=== PATIENT | female | born 1945 | race Caucasian/White ===

== ENCOUNTER → 2017-09-23 | Outpatient (CLI) | payer MEDICARE, MEDICAID ==
[2017-09-23 17:35] LABS: BASOPHILS % (AUTO) 0 % (0-10); EOSINOPHILS # (AUTO) 0.2 10^3/uL (0.0-0.3); EOSINOPHILS % (AUTO) 3 % (0-10); HEMATOCRIT 40 % (35-52); HEMOGLOBIN 13.7 G/DL (11.5-16.0); LYMPHOCYTES # (AUTO) 2.1 X 10^3 (1.0-4.0); LYMPHOCYTES % (AUTO) 29 % (12-44); MEAN CORPUSCULAR HEMOGLOBIN 32 PG (25-34); MEAN CORPUSCULAR HGB CONC 34 G/DL (32-36); MEAN CORPUSCULAR VOLUME 93 FL (80-99); MEAN PLATELET VOLUME 9.3 FL (7.4-10.4); MONOCYTES # (AUTO) 0.6 X 10^3 (0.0-1.0); MONOCYTES % (AUTO) 8 % (0-12); NEUTROPHILS # (AUTO) 4.4 X 10^3 (1.8-7.8); NEUTROPHILS % (AUTO) 60 % (42-75); PLATELET COUNT 267 10^3/uL (130-400); RED BLOOD COUNT 4.29 10^6/uL (4.35-5.85); RED CELL DISTRIBUTION WIDTH 14.1 % (10.0-14.5); WHITE BLOOD COUNT 7.2 10^3/uL (4.3-11.0)
[2017-09-23 17:52] LABS: ALANINE AMINOTRANSFERASE 14 U/L (0-55); ALKALINE PHOSPHATASE 86 U/L (40-136); BILIRUBIN,TOTAL 0.4 MG/DL (0.1-1.0); BUN/CREATININE RATIO 14; CALCIUM 9.6 MG/DL (8.5-10.1); CARBON DIOXIDE 24 MMOL/L (21-32); CHLORIDE 108 MMOL/L (98-107); CREATININE SERUM 0.86 MG/DL (0.60-1.30); GFR ESTIMATED > 60; GLUCOSE 104 MG/DL (70-105); POTASSIUM 3.6 MMOL/L (3.6-5.0); SODIUM 142 MMOL/L (135-145); TOTAL PROTEIN 6.6 GM/DL (6.4-8.2)
== END ==
LOC: LAB 17:11
PROVIDERS: ATTEND Nurse Practitioner Family
DX: R10.30 Lower abdominal pain, unspecified (principal)
CPT/HCPCS: 36415; 80053; 85025

== ENCOUNTER 2018-08-06 14:26 | Emergency (ER) | payer MEDICARE, MEDICAID ==
[~2018-08-06] VITALS: Ht 160 cm; Wt 67.1 kg
--- OUTSIDE RECORDS SUMMARY | 2018-08-06 14:32 | XMS REPORT ---
Author Author GERSON DUARTE [employer] Address Unknown Phone Unavailable Care Team Providers Care Coupler Name Role Phone GERSON DUARTE CP Unavailable Allergies, Adverse Reactions, Alerts Substance Reaction Event Type Iodine Info Not Available Drug Allergy Problems Problem Type Condition Code Onset Dates Condition Status Assessment Encounter for dental examination Z01.20 Active Problem Encounter for dental examination Z01.20 Active Medications Medication Code System Code Instructions Start Date End Date Status Dosage Niacin [facility] [address]-65 100 MG Orally Once a day 1 tablet Magnesium [facility] [address]-15 250 MG Orally Once a day 1 tablet with a meal Alprazolam [facility] [address]-76 0.5 MG Orally Three times a day 1 tablet Carvedilol [facility] [address]-51 6.25 MG Orally not defined Procedures Procedure Coding System Code Date PROPHYLAXIS - ADULT CPT-4 D1110 Feb 12, 2015 TOPICAL FLUORIDE VARNISH CPT-4 D1206 Feb 12, 2015 INTRAORL-PERIAPICAL 1 FILM 08511 CPT-4 D0220 Feb 12, 2015 INTRAORL-PERIAPICAL EA ADD FILM CPT-4 D0230 Feb 12, 2015 COMP ORAL EVALUATION - NEW/EST PT CPT-4 D0150 Feb 12, 2015 INTRAORL-PERIAPICAL EA ADD FILM CPT-4 D0230 Feb 12, 2015 INTRAORL-PERIAPICAL EA ADD FILM CPT-4 D0230 Feb 12, 2015 PANORAMIC FILM SEE ALSO CODE 54710 CPT-4 D0330 Feb 12, 2015 INTRAORL-PERIAPICAL EA ADD FILM CPT-4 D0230 Feb 12, 2015 INTRAORL-PERIAPICAL EA ADD FILM CPT-4 D0230 Feb 12, 2015 INTRAORL-PERIAPICAL EA ADD FILM CPT-4 D0230 Feb 12, 2015 INTRAORL-PERIAPICAL EA ADD FILM CPT-4 D0230 Feb 12, 2015 Vital Signs Date/Time: Feb 12, 2015 Blood Pressure Diastolic 87 mmHg Blood Pressure Systolic 141 mmHg Cardiac Monitoring Heart Rate 79 bpm Results No Known Results Summary Purpose eClinicalWorks Submission
[2018-08-06 14:53] LABS: BILIRUBIN,URINE NEGATIVE (NEGATIVE); CLARITY,URINE CLEAR; COLOR,URINE YELLOW; GLUCOSE, URINE (UA) NEGATIVE (NEGATIVE); KETONES,URINE NEGATIVE (NEGATIVE); LEUKOCYTE ESTERASE ,URINE 3+ (NEGATIVE); NITRITE,URINE NEGATIVE (NEGATIVE); PH,URINE 5 (5-9); PROTEIN,URINE 1+ (NEGATIVE); UROBILINOGEN,URINE NORMAL (NORMAL)
[2018-08-06 15:05] LABS: BACTERIA,URINE NEGATIVE /HPF; RBC,URINE 0-2 /HPF
--- NOTE | 2018-08-06 15:16 | ED General ---
General Chief Complaint: Dizziness/Syncope Stated Complaint: DIZZINESS;VOMITING Source of Information: Patient Exam Limitations: No Limitations History of Present Illness Date Seen by Provider: August 06, 2018 Time Seen by Provider: 14:32 Initial Comments This 73-year-old woman presents to the emergency room with complaints of intermittent dizziness followed by vomiting over the past several months. Symptoms seem to have been worsening over the past few months. She was recently taken off of amlodipine by Dr. Araujo, and she thought that resolved the problem. However, dizziness and vomiting resumed 4 days ago. She then had 2 days of feeling extremely weak and having aching muscles in her calves and thighs. Last night she started vomiting again. Today she again feels very weak. She denies any chest pain or palpitations. She is not short of breath. She does have history of breast ache aortic aneurysm status post graft repair. In April she had sudden onset of pain in symptoms. She was flown from the ER in [place] to [facility] where she was found to have a tear in her aorta. She was watched for several days and has had serial scans to monitor the aneurysmal repair since then. She is scheduled to have another scan early next week. The original graft repair was performed in 2014. Patient was placed on Bactrim last week for treatment of a labial abscess that was incised and drained. Allergies and Home Medications Allergies Coded Allergies: carvedilol (Verified Allergy, Severe, Rash, 08/06/18) diazoxide (Verified Allergy, Severe, Rash, 08/06/18) iodine (Verified Allergy, Severe, Rash, 08/06/18) lisinopril (Verified Allergy, Severe, Cough, Hives, 08/06/18) losartan (Verified Allergy, Severe, Rash, 08/06/18) metoprolol (Verified Allergy, Severe, Rash, 08/06/18) alprazolam (Verified Adverse Reaction, Unknown, Hallucinations, 08/06/18) atorvastatin (Verified Adverse Reaction, Unknown, Muscle pain, 08/06/18) rosuvastatin (Verified Adverse Reaction, Unknown, Muscle pain, 08/06/18) Home Medications Cephalexin 500 Mg Capsule, 500 MG PO TID Prescribed by: JOSE BECKFORD on 08/06/18 8172 Ondansetron 4 Mg Tab.rapdis, 4 MG PO Q4H PRN for NAUSEA/VOMITING-1ST LINE Prescribed by: JOSE BECKFORD on 08/06/18 5512 Patient Home Medication List Home Medication List Reviewed: Yes Review of Systems Review of Systems Constitutional: see HPI EENTM: no symptoms reported Respiratory: no symptoms reported Cardiovascular: see HPI Gastrointestinal: see HPI Genitourinary: see HPI : No Musculoskeletal: no symptoms reported Skin: no symptoms reported Psychiatric/Neurological: No Symptoms Reported Hematologic/Lymphatic: No Symptoms Reported Past Moubngi-Gkqxtk-Wcwflp Hx Past Med/Social Hx: Reviewed and Corrections made Patient Social History Recent Foreign Travel: No Contact w/Someone Who Travel: No Past Medical History Surgeries: Yes (thoracic aortic aneurysm repair) Respiratory: No Cardiac: Yes (thoracic aortic aneurysm) Aneurysm, Hypertension Neurological: No : No Reproductive Disorders: No Genitourinary: No Gastrointestinal: No Musculoskeletal: No Endocrine: Yes (vitamin D deficiency, hypokalemia) HEENT: No Cancer: No Psychosocial: No Integumentary: No Physical Exam Vital Signs Vital Signs - First Documented 08/06/18 14:35 Temp 98.3 Pulse 74 Resp 16 B/P (MAP) 175/86 (115) Pulse Ox 99 O2 Delivery Room Air Capillary Refill : Height, Weight, BMI Height: '" Weight: lbs. oz. 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 Patient's symptoms have improved. She has follow-up arranged with her team at [facility]. This is an ongoing waxing and waning problem. I advised her to follow-up and discuss these issues with her team at [facility] rather than pursuing further workup here. Patient is agreeable to this plan. There was some suggestion of continuing urinary tract infection on her urinalysis. Keflex was prescribed. Zofran was also prescribed for use during any future episodes of nausea. ECG Initial ECG Impression Date: August 06, 2018 Initial ECG Impression Time: 14:57 Initial ECG Rate: 56 Initial ECG Rhythm: Normal Sinus Comment Normal sinus rhythm with no ST elevation or depression. Nonspecific T wave changes in the lateral leads. Probable LVH and right axis deviation. Departure Impression Primary Impression: Dizziness Additional Impressions: Nausea & vomiting Qualified Codes: R11.2 - Nausea with vomiting, unspecified Thoracic aortic aneurysm Qualified Codes: I71.2 - Thoracic aortic aneurysm, without rupture Urinary tract infection Qualified Codes: N39.0 - Urinary tract infection, site not specified Disposition: 01 HOME, SELF-CARE Condition: Stable Departure-Patient Inst. Decision time for Depature: 16:15 Referrals: VÍCTOR ARAUJO MD (PCP) Primary Care Physician Patient Instructions: Thoracic Aortic Aneurysm, Urinary Tract Infection, Adult (DC) Add. Discharge Instructions: Drink plenty of clear liquids. Take your medications as prescribed. For nausea and vomiting use Zofran (ondansetron) as prescribed. Return to care in the ER if symptoms of dizziness and vomiting return. It would be good to capture your heart rhythms during one of these episodes. Follow-up with Dr. Araujo as soon as possible. Keep your appointment at [facility] next week. Complete your antibiotics as prescribed and review urine culture results with Dr. Araujo. All discharge instructions reviewed with patient and/or family. Voiced understanding. Scripts Ondansetron (Ondansetron Odt) 4 Mg Tab.rapdis 4 MG PO Q4H PRN for NAUSEA/VOMITING-1ST LINE, #10 TAB Prov: JOSE BRONSON MD 08/06/18 Cephalexin (Keflex) 500 Mg Capsule 500 MG PO TID, #15 CAP Prov: JOSE BRONSON MD 08/06/18 Copy Copies To 1: VÍCTOR ARAUJO MD, JOSHUA T MD August 06, 2018 15:16
[2018-08-06] MEDS ORDERED: VALS160T29 (15:27)
[2018-08-06] MEDS ORDERED: AMLO10TA7 (15:27)
[2018-08-06] MEDS ORDERED: MUPI22OI2 (15:27)
[2018-08-06] MEDS ORDERED: CETI10TA17 (15:27)
[2018-08-06 15:42] LABS: ALANINE AMINOTRANSFERASE 14 U/L (0-55); ALBUMIN 4.1 GM/DL (3.2-4.5); ALKALINE PHOSPHATASE 128 U/L (40-136); BILIRUBIN,TOTAL 0.5 MG/DL (0.1-1.0); BUN/CREATININE RATIO 12; CALCIUM 9.6 MG/DL (8.5-10.1); CARBON DIOXIDE 22 MMOL/L (21-32); CHLORIDE 106 MMOL/L (98-107); CREATINE KINASE 65 U/L (29-168); CREATININE SERUM 0.98 MG/DL (0.60-1.30); GFR ESTIMATED 56; GLUCOSE 108 MG/DL (70-105); MAGNESIUM 1.9 MG/DL (1.8-2.4); SODIUM 139 MMOL/L (135-145); TOTAL PROTEIN 7.2 GM/DL (6.4-8.2)
[2018-08-06 15:43] LABS: BASOPHILS % (AUTO) 1 % (0-10); EOSINOPHILS # (AUTO) 0.1 10^3/uL (0.0-0.3); EOSINOPHILS % (AUTO) 1 % (0-10); HEMATOCRIT 40 % (35-52); HEMOGLOBIN 12.9 G/DL (11.5-16.0); LYMPHOCYTES # (AUTO) 2.1 X 10^3 (1.0-4.0); LYMPHOCYTES % (AUTO) 32 % (12-44); MEAN CORPUSCULAR HEMOGLOBIN 30 PG (25-34); MEAN CORPUSCULAR HGB CONC 33 G/DL (32-36); MEAN CORPUSCULAR VOLUME 93 FL (80-99); MEAN PLATELET VOLUME 9.1 FL (7.4-10.4); MONOCYTES # (AUTO) 0.6 X 10^3 (0.0-1.0); MONOCYTES % (AUTO) 9 % (0-12); NEUTROPHILS # (AUTO) 3.9 X 10^3 (1.8-7.8); NEUTROPHILS % (AUTO) 58 % (42-75); PLATELET COUNT 358 10^3/uL (130-400); RED CELL DISTRIBUTION WIDTH 13.2 % (10.0-14.5); WHITE BLOOD COUNT 6.6 10^3/uL (4.3-11.0)
[2018-08-06] MEDS ORDERED: CEPH-507 PO (16:22)
[2018-08-06] MEDS ORDERED: ONDA4TAB11 PO (16:22)
[2018-08-06 16:33] VITALS: BP 158/70
== END 2018-08-06 16:35 | disposition home or self-care (01) ==
LOC: EDUNIT# 14:26 → ER 14:28
DX: R42 Dizziness and giddiness (principal); N39.0 Urinary tract infection, site not specified; I71.2 Thoracic aortic aneurysm, without rupture; I10 Essential (primary) hypertension; Z88.8 Allergy status to other drugs, medicaments and biological substances; Z91.041 Radiographic dye allergy status; Z98.890 Other specified postprocedural states
CPT/HCPCS: 36415; 80053; 81000; 82550; 83735; 83874; 84484; 85025; 87088; 93005; 93041

== ENCOUNTER 2018-08-10 21:16 | Emergency (ER) | payer MEDICARE, MEDICAID ==
[~2018-08-10 21:16] MED LIST: AMLO10TA7; CEPH-507 PO; CETI10TA17; MUPI22OI2; ONDA4TAB11 PO; VALS160T29
== END 2018-08-11 00:46 | disposition left against medical advice (07) ==
LOC: EDUNIT# 21:16 → ER FS 21:19
DX: R11.10 Vomiting, unspecified (principal); R42 Dizziness and giddiness

== ENCOUNTER 2018-08-11 13:47 | Emergency (ER) | payer MEDICARE, MEDICAID ==
[~2018-08-11] VITALS: Ht 160 cm; Wt 67.1 kg
--- NOTE | 2018-08-11 14:11 | ED Neurological Problem ---
General Stated Complaint: DIZZINESS; VOMITING Source: patient, RN notes reviewed, old records Exam Limitations: no limitations History of Present Illness Date Seen by Provider: August 11, 2018 Time Seen by Provider: 14:11 Initial Comments Patient presents c/ c/o worsening episodic vertigo c/ intractable N/V followed by abdominal pain. Patient reports the episodes started p/ her thoracic aorta aneurysm repair but have been increasing in frequency and severity. Recently seen @ [facility] for an episode and presented here last PM she stated p/ a spell of vertigo and throwing up for over 2 hours. She wound up leaving s/ being seen last PM secondary to it being extremely busy (there was a code in the ED last PM). Apparently had another episode today leading to her coming back. Reports being seen @ [facility] yesterday in follow up of her thoracic aneurysm and did mention the episodes to them then and they told her they were going to get her referred to a PCP to arrange further evaluation. States she doesn't think she can wait. Becoming afraid to drive not knowing if she is going to have an episode. Timing/Duration: episodic, other (months) Severity: severe Associated Symptoms: nausea/vomiting Allergies and Home Medications Allergies Coded Allergies: carvedilol (Verified Allergy, Severe, Rash, 08/06/18) diazoxide (Verified Allergy, Severe, Rash, 08/06/18) iodine (Verified Allergy, Severe, Rash, 08/06/18) lisinopril (Verified Allergy, Severe, Cough, Hives, 08/06/18) losartan (Verified Allergy, Severe, Rash, 08/06/18) metoprolol (Verified Allergy, Severe, Rash, 08/06/18) venom-wasp (Verified Allergy, Severe, anaphylaxis, 08/11/18) alprazolam (Verified Adverse Reaction, Unknown, Hallucinations, 08/06/18) atorvastatin (Verified Adverse Reaction, Unknown, Muscle pain, 08/06/18) rosuvastatin (Verified Adverse Reaction, Unknown, Muscle pain, 08/06/18) Home Medications Cephalexin 500 Mg Capsule, 500 MG PO TID Prescribed by: JOSE BECKFORD on 08/06/18 1622 Ondansetron 4 Mg Tab.rapdis, 4 MG PO Q4H PRN for NAUSEA/VOMITING-1ST LINE Prescribed by: JOSE BECKFORD on 08/06/18 1622 Patient Home Medication List Home Medication List Reviewed: Yes Review of Systems Review of Systems Constitutional: see HPI, other (vertigo) Gastrointestinal: see HPI, abdominal pain (from throwing up per patient), nausea, vomiting : No Past Kkdkoob-Afxklc-Nvlrby Hx Patient Social History Type Used: Cigarettes 2nd Hand Smoke Exposure: Yes Recent Hopitalizations: No Immunizations Up To Date Tetanus Booster (TDap): Unknown PED Vaccines UTD: Yes Seasonal Allergies Seasonal Allergies: No Past Medical History Surgeries: Yes (thoracic aortic aneurysm repair) Breast, Hysterectomy Respiratory: No Cardiac: Yes (thoracic aortic aneurysm) Aneurysm, Hypertension Neurological: No Reproductive Disorders: No Genitourinary: No Gastrointestinal: No Liver Disease/Jaundice, Diverticulosis Musculoskeletal: No Endocrine: Yes (vitamin D deficiency, hypokalemia) Diabetes, Non-Insulin dep HEENT: No Cancer: No Psychosocial: No Anxiety Integumentary: No Blood Disorders: No Physical Exam Vital Signs Vital Signs - First Documented 08/11/18 14:00 Temp 97.4 Pulse 81 Resp 25 B/P (MAP) 165/73 (103) Pulse Ox 96 O2 Delivery Room Air Capillary Refill : Height, Weight, BMI Height: 5'3.00" Weight: 148lbs. oz. 67.838051aa; BMI Method:Stated General Appearance: WD/WN, no apparent distress HEENT: PERRL/EOMI, pharynx normal Neck: normal inspection Respiratory: no respiratory distress Cardiovascular: regular rate, rhythm Gastrointestinal: No guarding, No rebound; tenderness (epigastric) Neurologic/Psychiatric: no motor/sensory deficits, alert, normal mood/affect, oriented x 3 Skin: warm/dry Progress/Results/Core Measures Results/Orders Lab Results Laboratory Tests Test 08/11/18 14:45 08/11/18 18:23 Range/Units White Blood Count 8.7 4.3-11.0 10^3/uL Red Blood Count 4.08 L 4.35-5.85 10^6/uL Hemoglobin 12.3 11.5-16.0 G/DL Hematocrit 38 35-52 % Mean Corpuscular Volume 92 80-99 FL Mean Corpuscular Hemoglobin 30 25-34 PG Mean Corpuscular Hemoglobin Concent 33 32-36 G/DL Red Cell Distribution Width 13.0 10.0-14.5 % Platelet Count 327 130-400 10^3/uL Mean Platelet Volume 8.9 7.4-10.4 FL Neutrophils (%) (Auto) 63 42-75 % Lymphocytes (%) (Auto) 29 12-44 % Monocytes (%) (Auto) 8 0-12 % Eosinophils (%) (Auto) 0 0-10 % Basophils (%) (Auto) 0 0-10 % Neutrophils # (Auto) 5.5 1.8-7.8 X 10^3 Lymphocytes # (Auto) 2.5 1.0-4.0 X 10^3 Monocytes # (Auto) 0.7 0.0-1.0 X 10^3 Eosinophils # (Auto) 0.0 0.0-0.3 10^3/uL Basophils # (Auto) 0.0 0.0-0.1 10^3/uL Sodium Level 141 135-145 MMOL/L Potassium Level 3.7 3.6-5.0 MMOL/L Chloride Level 103 98-107 MMOL/L Carbon Dioxide Level 26 21-32 MMOL/L Anion Gap 12 5-14 MMOL/L Blood Urea Nitrogen 15 7-18 MG/DL Creatinine 0.85 0.60-1.30 MG/DL Estimat Glomerular Filtration Rate > 60 BUN/Creatinine Ratio 18 Glucose Level 114 H 70-105 MG/DL Calcium Level 9.1 8.5-10.1 MG/DL Corrected Calcium 9.3 8.5-10.1 MG/DL Magnesium Level 2.1 1.8-2.4 MG/DL Total Bilirubin 0.4 0.1-1.0 MG/DL Aspartate Amino Transf (AST/SGOT) 12 5-34 U/L Alanine Aminotransferase (ALT/SGPT) 9 0-55 U/L Alkaline Phosphatase 110 40-136 U/L Troponin T < 6 <=10 NG/L Total Protein 6.7 6.4-8.2 GM/DL Albumin 3.7 3.2-4.5 GM/DL Urine Color YELLOW Urine Clarity CLEAR Urine pH 6.0 5-9 Urine Specific [place] <=1.005 1.016-1.022 Urine Protein NEGATIVE NEGATIVE Urine Glucose (UA) NEGATIVE NEGATIVE Urine Ketones NEGATIVE NEGATIVE Urine Nitrite NEGATIVE NEGATIVE Urine Bilirubin NEGATIVE NEGATIVE Urine Urobilinogen 0.2 NORMAL MG/DL Urine Leukocyte Esterase 1+ H NEGATIVE Urine RBC (Auto) NEGATIVE NEGATIVE Urine RBC NONE /HPF Urine WBC 5-10 H /HPF Urine Squamous Epithelial Cells 2-5 /HPF Urine Crystals NONE /LPF Urine Bacteria TRACE /HPF Urine Casts NONE /LPF Urine Mucus NONE /LPF Urine Culture Indicated YES My Orders Orders - EDIN WHITE DO Ua Culture If Indicated (08/11/18 14:16) Cbc With Automated Diff (08/11/18 14:31) Comprehensive Metabolic Panel (08/11/18 14:31) Magnesium (08/11/18 14:31) Troponin T (08/11/18 14:31) Ct Head Wo (08/11/18 14:31) Ekg Tracing (08/11/18 14:33) Orthostatic Vital Signs (Adult (08/11/18 14:33) Lactated Ringers (Lr 1000 Ml Iv Solution (08/11/18 16:00) Ondansetron Injection (Zofran Injectio (08/11/18 17:15) Urine Culture (08/11/18 18:23) Medications Given in ED Vital Signs/I&O 08/11/18 08/11/18 08/11/18 08/11/18 14:00 14:23 17:40 18:51 Temp 97.4 98.2 Pulse 81 64 Resp 25 18 B/P (MAP) 165/73 (103) 165/73 (103) 138/68 (91) 193/84 (120) 167/75 (105) 138/58 (84) 115/67 (83) Pulse Ox 96 95 O2 Delivery Room Air Room Air Progress Progress Note : Progress Note Mildly orthostatic. Will gently hydrate. Request transfer to [facility] for further evaluation/work up of her symptoms. Don't think that is a bad idea. They would have the necessary specialties (ENT, Neuro, and maybe Cards) to work her episodes up. Did give her a dose of Zofran here for the complaint of nausea. Initial ECG Impression Date: August 11, 2018 Initial ECG Impression Time: 15:19 Initial ECG Rate: 58 Initial ECG Rhythm: S.Reyes Initial ECG Impression: Nonspecific Changes (probable LVH) Initial ECG Comparisson: No Previous ECG Available Diagnostic Imaging Diagonstic Imaging: CT Plain Films/CT/US/NM/MRI: head (nothing acute) Departure Impression Primary Impression: Vertigo c/ N/V and secondary abdominal pain Disposition: XFER SHT-TRM HOSP Condition: Stable Transfer Time Spoke to Accepting Phy: 17:22 Transfer Progress Notes Patient accepted for transfer to [facility] by Dr. Leonard. Transfer Facility: [facility] (patient's choice) Method of Transfer: EMS Departure-Patient Inst. Referrals: NO,LOCAL PHYSICIAN (PCP/Family) Primary Care Physician EDIN WHITE DO August 11, 2018 14:11
[2018-08-11 14:23] VITALS: BP_SYST 165; BP_SYST 167; BP_DIAS 73; BP_DIAS 75
[2018-08-11 14:57] LABS: HEMOGLOBIN 12.3 G/DL (11.5-16.0); MEAN CORPUSCULAR HEMOGLOBIN 30 PG (25-34); WHITE BLOOD COUNT 8.7 10^3/uL (4.3-11.0)
[2018-08-11 14:58] LABS: BASOPHILS % (AUTO) 0 % (0-10); EOSINOPHILS % (AUTO) 0 % (0-10); HEMATOCRIT 38 % (35-52); LYMPHOCYTES % (AUTO) 29 % (12-44); MEAN CORPUSCULAR HGB CONC 33 G/DL (32-36); MEAN CORPUSCULAR VOLUME 92 FL (80-99); MEAN PLATELET VOLUME 8.9 FL (7.4-10.4); MONOCYTES % (AUTO) 8 % (0-12); NEUTROPHILS % (AUTO) 63 % (42-75); PLATELET COUNT 327 10^3/uL (130-400)
[2018-08-11 14:59] LABS: LYMPHOCYTES # (AUTO) 2.5 X 10^3 (1.0-4.0); MONOCYTES # (AUTO) 0.7 X 10^3 (0.0-1.0); NEUTROPHILS # (AUTO) 5.5 X 10^3 (1.8-7.8)
--- NOTE | 2018-08-11 15:02 | Diagnostic Imaging Report ---
INDICATION: Dizziness. Vomiting. TECHNIQUE: Routine non contrast-enhanced axial images were obtained from the skull base to the vertex. Auto Exposure Controls were utilized during the CT exam to meet ALARA standards for radiation dose reduction COMPARISON: None. FINDINGS: The ventricles and cortical sulci are diffusely prominent, compatible with age-related volume loss. There are confluent areas of abnormal, low attenuation in the periventricular white matter. This is consistent with small vessel ischemic changes; age-indeterminate. There is no prior study available for comparison. There is no midline shift or mass-effect. No acute intra-axial hemorrhage is seen. There are no abnormal areas of increased or decreased density to suggest acute hemorrhage or edema. No extra-axial masses or collections are present. The bony calvarium is intact. The visualized paranasal sinuses are unremarkable. The mastoid air cells are clear. IMPRESSION: 1. No acute intracranial abnormality. No CT evidence of mass, acute infarct or intracranial hemorrhage. 2. Small vessel ischemic changes in the periventricular and subcortical white matter; likely chronic. Dictated by: Dictated on workstation # [id number]
[2018-08-11 15:30] LABS: CARBON DIOXIDE 26 MMOL/L (21-32); CHLORIDE 103 MMOL/L (98-107); POTASSIUM 3.7 MMOL/L (3.6-5.0); SODIUM 141 MMOL/L (135-145)
[2018-08-11 15:31] LABS: ALANINE AMINOTRANSFERASE 9 U/L (0-55); ALKALINE PHOSPHATASE 110 U/L (40-136); BILIRUBIN,TOTAL 0.4 MG/DL (0.1-1.0); BUN/CREATININE RATIO 18; CALCIUM 9.1 MG/DL (8.5-10.1); CREATININE SERUM 0.85 MG/DL (0.60-1.30); GFR ESTIMATED > 60; GLUCOSE 114 MG/DL (70-105); MAGNESIUM 2.1 MG/DL (1.8-2.4); TOTAL PROTEIN 6.7 GM/DL (6.4-8.2)
[2018-08-11 15:32] LABS: ALBUMIN 3.7 GM/DL (3.2-4.5)
[2018-08-11] MEDS ORDERED: LACTATED RINGERS 1,000 ML IV SCH (16:00)
[2018-08-11] MEDS ORDERED: ONDANSETRON 4 MG/2 ML (SDV) Z0FRAN IVP ONE (17:15)
--- NOTE | 2018-08-11 17:22 | NUR ---
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 Dr. Sarkar contacted , they will accept patient for inpatient admission.
[2018-08-11 17:40] VITALS: BP_SYST 115; BP_SYST 138; BP_DIAS 58; BP_DIAS 67; BP_DIAS 68
[2018-08-11] MEDS ORDERED: hydrALAZINE (APESOLINE) 20 MG/ML VIAL IV ONE (18:30)
[2018-08-11 18:31] LABS: CLARITY,URINE CLEAR; COLOR,URINE YELLOW
[2018-08-11 18:32] LABS: BACTERIA,URINE TRACE /HPF; BILIRUBIN,URINE NEGATIVE (NEGATIVE); GLUCOSE, URINE (UA) NEGATIVE (NEGATIVE); KETONES,URINE NEGATIVE (NEGATIVE); LEUKOCYTE ESTERASE ,URINE 1+ (NEGATIVE); NITRITE,URINE NEGATIVE (NEGATIVE); PROTEIN,URINE NEGATIVE (NEGATIVE); UROBILINOGEN,URINE 0.2 MG/DL (NORMAL)
[2018-08-11 18:51] VITALS: BP 193/84
== END 2018-08-11 18:50 | disposition short-term general hospital (02) ==
LOC: EDUNIT# 13:47 → ER FS 13:49
DX: R42 Dizziness and giddiness (principal); R11.2 Nausea with vomiting, unspecified; R10.13 Epigastric pain; I10 Essential (primary) hypertension; E11.9 Type 2 diabetes mellitus without complications; F41.9 Anxiety disorder, unspecified; Z87.19 Personal history of other diseases of the digestive system; Z88.8 Allergy status to other drugs, medicaments and biological substances; Z91.041 Radiographic dye allergy status; Z77.22 Contact with and (suspected) exposure to environmental tobacco smoke (acute) (chronic); Z90.710 Acquired absence of both cervix and uterus
CPT/HCPCS: 36415; 70450; 80053; 81000; 83735; 84484; 85025; 87088; 93005; 96361; 96374; 96375

== ENCOUNTER 2019-04-18 12:39 | Emergency (ER) | payer MEDICARE, MEDICAID ==
[~2019-04-18] VITALS: Ht 158 cm; Wt 75.1 kg
[2019-04-18] MEDS ORDERED: IBUPROFEN 600 MG (MOTRIN) TAB PO ONE (13:15)
[2019-04-18] MEDS ORDERED: ACETAMINOPHEN 500 MG TAB (TYLENOL) PO ONE (13:15)
--- NOTE | 2019-04-18 13:24 | ED General ---
General Chief Complaint: Chest Wall Stated Complaint: LT RIB INJ Nursing Triage Note: On Thursday the patient was trying to open her car door and hit the door with her shoulder. She felt like her arm and elbow dug into her side when she hit the car door and is having left rib pain currrently rated at 7/10. Pain has worsened over the past two days and is exacerbated by movement. Nursing Sepsis Screen: No Definite Risk History of Present Illness Date Seen by Provider: Apr 18, 2019 Time Seen by Provider: 12:45 Initial Comments The patient is a 73-year-old female with a history of hypertension, hyperlipidemia, reported ascending and descending thoracic aortic aneurysms managed at [facility]. She presents with concern for left lateral chest wall / rib discomfort provoked after she repeatedly hit her car door with her shoulder while it was frozen shut to "unstick it" 2 days prior to arrival. Discomfort was not particularly severe at first but has become more intense over time. It is focal, worse with movement of her arm and twisting of her chest wall and reproducible with direct palpation. She denies radiation of the discomfort anywhere else. She denies nausea or vomiting, cough, diaphoresis, curtis substernal chest discomfort, interscapular back pain, abdominal pain, flank pain. She has been taking ibuprofen at home for relief of symptoms without complete relief of discomfort. Allergies and Home Medications Allergies Coded Allergies: carvedilol (Verified Allergy, Severe, Rash, 08/06/18) diazoxide (Verified Allergy, Severe, Rash, 08/06/18) iodine (Verified Allergy, Severe, Rash, 08/06/18) lisinopril (Verified Allergy, Severe, Cough, Hives, 08/06/18) losartan (Verified Allergy, Severe, Rash, 08/06/18) metoprolol (Verified Allergy, Severe, Rash, 08/06/18) venom-wasp (Verified Allergy, Severe, anaphylaxis, 08/11/18) alprazolam (Verified Adverse Reaction, Unknown, Hallucinations, 08/06/18) atorvastatin (Verified Adverse Reaction, Unknown, Muscle pain, 08/06/18) rosuvastatin (Verified Adverse Reaction, Unknown, Muscle pain, 08/06/18) Home Medications Cephalexin 500 Mg Capsule, 500 MG PO TID Prescribed by: JOSE BECKFORD on 08/06/18 0480 Ondansetron 4 Mg Tab.rapdis, 4 MG PO Q4H PRN for NAUSEA/VOMITING-1ST LINE Prescribed by: JOSE BECKFORD on 08/06/18 6072 Patient Home Medication List Home Medication List Reviewed: Yes Review of Systems Review of Systems Constitutional: see HPI All Other Systems Reviewed Negative Unless Noted: Yes (Negative excepted noted.) Past Ahihsmx-Diwnjh-Yjozzc Hx Past Med/Social Hx: Reviewed Nursing Past Med/Soc Hx Patient Social History Alcohol Use: Denies Use Recreational Drug Use: No Smoking Status: Former Smoker Type Used: Cigarettes Former Smoker, Quit: Apr 21, 2018 2nd Hand Smoke Exposure: Yes Recent Foreign Travel: No Contact w/Someone Who Travel: No Recent Infectious Disease Expo: No Recent Hopitalizations: No Physical Abuse: No Sexual Abuse: No Mistreated: No Fear: No Immunizations Up To Date Tetanus Booster (TDap): Unknown PED Vaccines UTD: Yes Seasonal Allergies Seasonal Allergies: No Past Medical History Surgeries: Yes (thoracic aortic aneurysm repair) Breast, Hysterectomy, Open Heart Surgery Respiratory: No Cardiac: Yes (thoracic aortic aneurysm) Aneurysm, Hypertension Neurological: No Reproductive Disorders: No Genitourinary: No Gastrointestinal: Yes Liver Disease/Jaundice, Diverticulosis Musculoskeletal: No Endocrine: Yes (vitamin D deficiency, hypokalemia) Diabetes, Non-Insulin dep HEENT: No Cancer: No Psychosocial: Yes Anxiety Integumentary: No Blood Disorders: No Family Medical History Reviewed Nursing Family Hx Physical Exam Vital Signs Vital Signs - First Documented 04/18/19 12:53 Temp 36.7 Pulse 64 Resp 16 B/P (MAP) 158/78 (104) Pulse Ox 97 Capillary Refill : Less Than 3 Seconds Height, Weight, BMI Height: 5'3.00" Weight: 148lbs. oz. [id number]; 30.00 BMI Method:Stated General Appearance: No Apparent Distress Comments This is an elderly female appearing nontoxic and in no acute distress. Head is normocephalic and atraumatic. Neck is supple and nontender. Oropharynx is moist. Lungs are clear to auscultation at all stations. There is normal S1 and S2 without rubs or gallops and capillary refill is appropriate, less than 2 seconds globally. Abdomen is soft, nontender and nondistended. No pulsatile mass is seen to the abdomen. Skin is warm and dry without cyanosis, clubbing or edema. Psychiatrically, the patient demonstrates appropriate mood and affect and is alert. Evaluation of the chest wall reveals very mild tenderness to the left lateral chest wall without erythema, warmth, swelling, paradoxical movement or other abnormality noted. Bilateral upper extremities are neurovascularly intact with 2+/equal pulses bilaterally. Extremities upper and lower have equal pulses and are warm and well-perfused. Progress/Results/Core Measures Suspected Sepsis Recent Fever Within 48 Hours: No Infection Criteria Present: None New/Unexplained Altered Menta: No Sepsis Screen: No Definite Risk SIRS Temperature: Pulse: 64 Respiratory Rate: 16 Blood Pressure 158 /78 Mean: 104 Results/Orders My Orders Orders - MARITZA DURANT MD Ribs/Unilateral With Chest (04/18/19 13:00) Ibuprofen Tablet (Motrin Tablet) (04/18/19 13:15) Acetaminophen Tablet (Tylenol Tablet) (04/18/19 13:15) Medications Given in ED Current Medications Medications Dose Ordered Sig/Yousuf Route Start Time Stop Time Status Last Admin Dose Admin Acetaminophen 1,000 mg ONCE ONCE PO 04/18/19 13:15 04/18/19 13:16 DC 04/18/19 13:21 1,000 MG Ibuprofen 600 mg ONCE ONCE PO 04/18/19 13:15 04/18/19 13:16 DC 04/18/19 13:21 600 MG Vital Signs/I&O 04/18/19 12:53 Temp 36.7 Pulse 64 Resp 16 B/P (MAP) 158/78 (104) Pulse Ox 97 Capillary Refill : Less Than 3 Seconds Blood Pressure Mean: 104 Progress Note : Time: 13:30 Progress Note Vital signs and clinical examination reassuring. 73-year-old female with reprod ucible left lateral chest wall tenderness after a very clear injury to that area a couple of days ago. NO substernal chest pain, back pain, abdominal pain, nausea, vomiting, SOA. Currently taking ibuprofen intermittently without complete relief of symptoms. We'll treat with medication as per flow sheet and check rib films although very low suspicion for mechanism sufficient to cause rib fracture or pulmonary injury. If workup is reassuring, plan for home with medications for discomfort and spasm and instructions to follow up very closely with primary care in the next 1-2 days. The patient understands and agrees with this plan of care. Update 1334: plain films reassuring. Will discharge as per plan with medication for discomfort and spasm. Patient is to follow-up with primary care in the next 1-2 days and is to return to the emergency department right away if symptoms worsen or if other new symptoms of concern develop. She understands and agrees and all questions are answered. Departure Impression Primary Impression: Contusion of left chest wall Qualified Codes: S20.212A - Contusion of left front wall of thorax, initial encounter Disposition: HOME, SELF-CARE Condition: Improved Departure-Patient Inst. Referrals: NO,LOCAL PHYSICIAN (PCP/Family) Primary Care Physician Patient Instructions: CHEST CONTUSION Add. Discharge Instructions: Please follow up with your primary care physician in the next 1-2 days as discussed for reevaluation of your symptoms and further care. Use the medication as prescribed for your symptoms. Return to the emergency department right away with worsening symptoms or other new concerns. Scripts [lidoderm 5% patch] No Conflict Check 1 PATCH TD DAILY for Pain, #10 EA Prov: MARITZA DURANT MD 04/18/19 Oxycodone Hcl (Oxycodone IR) 5 Mg Tab 5 MG PO Q6H PRN for PAIN-SEVERE (8-10) for 7 Days, #5 TAB Prov: MARITZA DURANT MD 04/18/19 Cyclobenzaprine HCl (Cyclobenzaprine HCl) 5 Mg Tablet 5 MG PO Q8H for pain/spasm, #11 TAB Prov: MARITZA DURANT MD 04/18/19 Acetaminophen (Tylenol) 325 Mg Capsule 650 MG PO Q6H for Pain, #50 CAP Prov: MARITZA DURANT MD 04/18/19 MARITZA DURANT MD Apr 18, 2019 13:24
--- NOTE | 2019-04-18 13:27 | Diagnostic Imaging Report ---
INDICATION: Left-sided rib pain and injury. TIME OF EXAMINATION: 12:48 PM. FINDINGS: Multiple views of the left ribs were obtained. Changes of median sternotomy are noted. There is some significant ectasia and tortuosity of the descending thoracic aorta. There also appears to be aneurysmal dilatation of the descending thoracic aorta just beyond the arch. No definite displaced rib fracture is seen. No parenchymal contusion, effusion, or pneumothorax is seen. IMPRESSION: 1. No displaced rib fracture is detected. 2. Findings are suggestive of thoracic aortic aneurysm in the proximal aspect of the descending thoracic aorta. Dictated by: Dictated on workstation # [id number]
[2019-04-18] MEDS ORDERED: ACET325C7 PO (13:40)
[2019-04-18] MEDS ORDERED: CYCL5TAB PO (13:40)
[2019-04-18] MEDS ORDERED: OXC5T PO (13:40)
[2019-04-18] MEDS ORDERED: lidoderm 5% patch TD (13:40)
[2019-04-18 14:01] VITALS: BP 158/85
== END 2019-04-18 14:01 | disposition home or self-care (01) ==
LOC: EDUNIT# 12:39 → ER FS 12:41
DX: S20.212A Contusion of left front wall of thorax, initial encounter (principal); I10 Essential (primary) hypertension; E11.9 Type 2 diabetes mellitus without complications; E78.5 Hyperlipidemia, unspecified; F41.9 Anxiety disorder, unspecified; Z88.8 Allergy status to other drugs, medicaments and biological substances; Z87.891 Personal history of nicotine dependence; Z77.22 Contact with and (suspected) exposure to environmental tobacco smoke (acute) (chronic); Z90.710 Acquired absence of both cervix and uterus; W22.8XXA Striking against or struck by other objects, initial encounter
CPT/HCPCS: 71101

== ENCOUNTER 2021-06-16 15:40 | Emergency (ER) | payer MEDICARE, MEDICAID ==
[~2021-06-16 15:40] MED LIST changes: +ACET325C7 PO; +AMLO-251; -AMLO10TA7; +CYCL5TAB PO; +OXC5T PO; +lidoderm 5% patch TD
--- NOTE | 2021-06-16 15:49 | ED Upper Extremity ---
General Chief Complaint: Laceration Stated Complaint: LEFT ARM LACERATION Source: patient History of Present Illness Date Seen by Provider: Jun 16, 2021 Time Seen by Provider: 15:44 Initial Comments 76-year-old female presenting with skin tear to her left arm. She states that she was in [place] at a stroke site and had slipped and fell. When she fe ll she had bumped her arm against some farm equipment. This caused her to have a skin tear to her left forearm. She did have a lot of bleeding initially. Bleeding is controlled on arrival to the ED. She states that she takes an aspirin but not anything stronger for blood thinner. She thinks her last tetanus was less than 5 years ago but was not sure so she would like to update it. She denies hitting her head or losing consciousness. She denies any other injury. Onset: this afternoon Severity: mild Pain/Injury Location: left forearm Method of Injury: fell Modifying Factors: Worse With Movement Allergies and Home Medications Allergies Coded Allergies: carvedilol (Verified Allergy, Severe, Rash, 08/06/18) diazoxide (Verified Allergy, Severe, Rash, 08/06/18) iodine (Verified Allergy, Severe, Rash, 08/06/18) lisinopril (Verified Allergy, Severe, Cough, Hives, 08/06/18) losartan (Verified Allergy, Severe, Rash, 08/06/18) metoprolol (Verified Allergy, Severe, Rash, 08/06/18) venom-wasp (Verified Allergy, Severe, anaphylaxis, 08/11/18) alprazolam (Verified Adverse Reaction, Unknown, Hallucinations, 08/06/18) atorvastatin (Verified Adverse Reaction, Unknown, Muscle pain, 08/06/18) rosuvastatin (Verified Adverse Reaction, Unknown, Muscle pain, 08/06/18) Patient Home Medication List Home Medication List Reviewed: Yes Acetaminophen (Tylenol) 325 Mg Capsule, 650 MG PO Q6H Prescribed by: MARITZA DURNAT on 04/18/19 1340 Amlodipine Besylate (Amlodipine Besylate) 10 Mg Tablet, (Reported) Entered as Reported by: ABIDA COREAS on 08/06/18 1527 Cephalexin (Keflex) 500 Mg Capsule, 500 MG PO TID Prescribed by: JOSE BECKFORD on 08/06/18 1622 Cetirizine HCl (Cetirizine HCl) 10 Mg Tablet, (Reported) Entered as Reported by: ABIDA COREAS on 08/06/18 1527 Cyclobenzaprine HCl (Cyclobenzaprine HCl) 5 Mg Tablet, 5 MG PO Q8H Prescribed by: MARITZA DURANT on 04/18/19 1340 Mupirocin (Mupirocin) 22 Gm Oint...g., (Reported) Entered as Reported by: ABIDA COREAS on 08/06/18 1527 Ondansetron (Ondansetron Odt) 4 Mg Tab.rapdis, 4 MG PO Q4H PRN for NAUSEA/VOMITING-1ST LINE Prescribed by: JOSE BECKFORD on 08/06/18 1622 Oxycodone Hcl (Oxycodone IR) 5 Mg Tab, 5 MG PO Q6H PRN for PAIN-SEVERE (8-10) Prescribed by: MARITZA DURANT on 04/18/19 1340 Valsartan (Valsartan) 160 Mg Tablet, (Reported) Entered as Reported by: ABIDA COREAS on 08/06/18 1527 [lidoderm 5% patch] , 1 PATCH TD DAILY Prescribed by: MARITZA DURANT on 04/18/19 1340 Review of Systems Constitutional: No chills, No fever EENTM: no symptoms reported Respiratory: no symptoms reported Cardiovascular: no symptoms reported Gastrointestinal: no symptoms reported Genitourinary: no symptoms reported Musculoskeletal: no symptoms reported Skin: other (skin tear to left forearm) Psychiatric/Neurological: Denies Numbness, Denies Paresthesia, Denies Weakness Past Fnjnnup-Mptpum-Dzgshb Hx Patient Social History Tobacco Use?: No Use of E-Cig and/or Vaping dev: No Substance use?: No Alcohol Use?: No Immunizations Up To Date Tetanus Booster (TDap): Unknown PED Vaccines UTD: Yes Seasonal Allergies Seasonal Allergies: No Past Medical History Surgery/Hospitalization HX: CAD, AAA, Hysterectomy Surgeries: Yes (thoracic aortic aneurysm repair) Breast, Hysterectomy, Open Heart Surgery Respiratory: No Cardiac: Yes (thoracic aortic aneurysm) Aneurysm, Hypertension Neurological: No Reproductive Disorders: No Genitourinary: No Gastrointestinal: Yes Liver Disease/Jaundice, Diverticulosis Musculoskeletal: No Endocrine: Yes (vitamin D deficiency, hypokalemia) Diabetes, Non-Insulin dep HEENT: No Cancer: No Psychosocial: Yes Anxiety Integumentary: No Blood Disorders: No Physical Exam Vital Signs Vital Signs - First Documented 06/16/21 15:42 Temp 36.9 Pulse 104 Resp 18 B/P (MAP) 182/91 (121) Pulse Ox 97 O2 Delivery Room Air Capillary Refill : Height, Weight, BMI Height: 5'3.00" Weight: 148lbs. oz. 67.102925kr; 30.00 BMI Method:Stated General Appearance: WD/WN, no apparent distress HEENT: PERRL/EOMI, pharynx normal Cardiovascular: normal peripheral pulses Shoulder: normal inspection, non-tender, no evidence of injury Elbow/Forearm: Left, abrasions (skin tear/flap on left distal forearm) Neurologic/Tendon: normal sensation, normal motor functions, normal tendon functions Neurologic/Psychiatric: heading pinner II-XII nml as tested, no motor/sensory deficits, alert, normal mood/affect, oriented x 3 Skin: warm/dry Progress/Results/Core Measures Results/Orders My Orders Orders - REYNA WILLOUGHBY MD Dipht,Pertuss(Acell),Tet Adult (Boostrix (06/16/21 16:00) Wound Dressing-Ed (06/16/21 15:46) Medications Given in ED Current Medications Medications Dose Ordered Sig/Yousuf Route Start Time Stop Time Status Last Admin Dose Admin Diphtheria/ Tetanus/Acell Pertussis 0.5 ml ONCE ONCE IM 06/16/21 16:00 06/16/21 15:58 DC 06/16/21 15:58 0.5 ML Vital Signs/I&O 06/16/21 06/16/21 06/16/21 15:42 15:58 15:58 Temp 36.9 36.9 Pulse 104 77 104 Resp 18 18 18 B/P (MAP) 182/91 (121) 133/76 182/91 Pulse Ox 97 97 97 O2 Delivery Room Air Room Air Room Air Progress Progress Note : Progress Note Ordered tetanus booster for the patient. Cleaned the wound with surgical scrub soap and sterile water. Reapproximate the wound edges and secured them with Steri-Strips. The nurse did this prior to applying a dressing. Counseled on follow-up and return precautions. Given an information sheet about wound care. Departure Impression Primary Impression: Skin tear of left forearm without complication Qualified Codes: S51.812A - Laceration without foreign body of left forearm, initial encounter Disposition: 01 HOME, SELF-CARE Condition: Stable Departure-Patient Inst. Decision time for Depature: 15:47 Referrals: NO,LOCAL PHYSICIAN (PCP/Family) Primary Care Physician Patient Instructions: SKIN AVULSION, Wound Care ED Add. Discharge Instructions: Keep wound clean with soap and water. may apply antibiotic ointment to help prevent infection. Follow up with clinic for continued concerns and to help manage wound care if needed as the skin tear is trying to heal. All discharge instructions reviewed with patient and/or family. Voiced understanding. REYNA WILLOUGHBY MD Jun 16, 2021 15:49
[2021-06-16 15:58] VITALS: BP 133/76
[2021-06-16] MEDS ORDERED: TETANUS,DIPTH,PERTUSS P/F (BOOSTRIX) 0.5 ML VIAL IM ONE (16:00)
== END 2021-06-16 15:58 | disposition home or self-care (01) ==
LOC: EDUNIT# 15:40 → ER FS 15:41
DX: S51.812A Laceration without foreign body of left forearm, initial encounter (principal); Z23 Encounter for immunization; W01.0XXA Fall on same level from slipping, tripping and stumbling without subsequent striking against object, initial encounter
CPT/HCPCS: 90715; 99284

== ENCOUNTER 2021-07-28 17:45 | Emergency (ER) | payer MEDICARE, MEDICAID ==
[~2021-07-28] VITALS: Ht 157.5 cm; Wt 70.5 kg
--- NOTE | 2021-07-28 17:58 | ED Fall/Injury ---
General Stated Complaint: FALL/HEAD LAC History of Present Illness Date Seen by Provider: Jul 28, 2021 Time Seen by Provider: 17:58 Initial Comments 76-year-old female is here with complaints of having a fall after tripping over her dog leash while she was walking her dog. Patient fell and hit the back of her head on the concrete pavement. Patient now has a large swelling to the left side back of her head. Denies pain, LOC, nausea and vomiting, neck pain, hearing issues, visual disturbances. Pt is not on a blood thinner. Occurred: yesterday Allergies and Home Medications Allergies Coded Allergies: carvedilol (Verified Allergy, Severe, Rash, 08/06/18) diazoxide (Verified Allergy, Severe, Rash, 08/06/18) iodine (Verified Allergy, Severe, Rash, 08/06/18) lisinopril (Verified Allergy, Severe, Cough, Hives, 08/06/18) losartan (Verified Allergy, Severe, Rash, 08/06/18) metoprolol (Verified Allergy, Severe, Rash, 08/06/18) venom-wasp (Verified Allergy, Severe, anaphylaxis, 08/11/18) alprazolam (Verified Adverse Reaction, Unknown, Hallucinations, 08/06/18) atorvastatin (Verified Adverse Reaction, Unknown, Muscle pain, 08/06/18) rosuvastatin (Verified Adverse Reaction, Unknown, Muscle pain, 08/06/18) Patient Home Medication List Home Medication List Reviewed: Yes Acetaminophen (Tylenol) 325 Mg Capsule, 650 MG PO Q6H Prescribed by: MARITZA DURANT on 04/18/19 1340 Amlodipine Besylate (Amlodipine Besylate) 10 Mg Tablet, (Reported) Entered as Reported by: ABIDA COREAS on 08/06/18 1527 Cephalexin (Keflex) 500 Mg Capsule, 500 MG PO TID Prescribed by: JOSE BECKFORD on 08/06/18 1622 Cetirizine HCl (Cetirizine HCl) 10 Mg Tablet, (Reported) Entered as Reported by: ABIDA COREAS on 08/06/18 1527 Cyclobenzaprine HCl (Cyclobenzaprine HCl) 5 Mg Tablet, 5 MG PO Q8H Prescribed by: MARITZA DURANT on 04/18/19 1340 Mupirocin (Mupirocin) 22 Gm Oint...g., (Reported) Entered as Reported by: ABIDA COREAS on 08/06/18 1527 Ondansetron (Ondansetron Odt) 4 Mg Tab.rapdis, 4 MG PO Q4H PRN for NAUSEA/VOMITING-1ST LINE Prescribed by: JOSE BECKFORD on 08/06/18 1622 Oxycodone Hcl (Oxycodone IR) 5 Mg Tab, 5 MG PO Q6H PRN for PAIN-SEVERE (8-10) Prescribed by: MARITZA DURANT on 04/18/19 1340 Valsartan (Valsartan) 160 Mg Tablet, (Reported) Entered as Reported by: ABIDA COREAS on 08/06/18 1527 [lidoderm 5% patch] , 1 PATCH TD DAILY Prescribed by: MARITZA DURANT on 04/18/19 1340 Review of Systems Review of Systems Constitutional: no symptoms reported Eyes: No Symptoms Reported Ears, Nose, Mouth, Throat: no symptoms reported Respiratory: no symptoms reported Cardiovascular: no symptoms reported Gastrointestinal: no symptoms reported Genitourinary: no symptoms reported Musculoskeletal: no symptoms reported Skin: no symptoms reported Psychiatric/Neurological: Other (head contusion/ abrasion) Past Sirzobv-Dqerms-Tpmnom Hx Immunizations Up To Date Tetanus Booster (TDap): Unknown PED Vaccines UTD: Yes Seasonal Allergies Seasonal Allergies: No Past Medical History Surgery/Hospitalization HX: CAD, AAA, Hysterectomy Surgeries: Yes (thoracic aortic aneurysm repair) Breast, Hysterectomy, Open Heart Surgery Respiratory: No Cardiac: Yes (thoracic aortic aneurysm) Aneurysm, Hypertension Neurological: No Reproductive Disorders: No Genitourinary: No Gastrointestinal: Yes Liver Disease/Jaundice, Diverticulosis Musculoskeletal: No Endocrine: Yes (vitamin D deficiency, hypokalemia) Diabetes, Non-Insulin dep HEENT: No Cancer: No Psychosocial: Yes Anxiety Integumentary: No Blood Disorders: No Physical Exam Vital Signs Vital Signs - First Documented 07/28/21 17:48 Temp 35.8 Pulse 95 Resp 18 B/P (MAP) 166/137 (147) Pulse Ox 98 O2 Delivery Room Air Capillary Refill : Height, Weight, BMI Height: 5'3.00" Weight: 148lbs. oz. 67.069364gl; 30.00 BMI Method:Stated General Appearance: no apparent distress HEENT: PERRL/EOMI, normal ENT inspection Neck: non-tender, full range of motion, supple, normal inspection Respiratory: chest non-tender Gastrointestinal: non tender Back: normal inspection, no vertebral tenderness Extremities: normal range of motion, normal inspection Neurologic/Psychiatric: no motor/sensory deficits, alert, normal mood/affect, oriented x 3, other (left parietal area has a hematoma which is about 8 to 10 cm diameter) Lisbeth Coma Score Best Eye Response: (4) Open Spontaneously Best Verbal Response: (5) Oriented Best Motor Response: (6) Obeys Commands Lisbeth Total: 15 Procedures/Interventions Wound Location: Scalp Other Wound Location left parietal Wound's Depth, Shape: superficial Wound Explored: no foreign body removed Anesthesia: Lidocaine w/ Epi Volume Anesthetic (ccs): 5 Wound Debrided: moderate Staple Repair: Stapler 35W Progress 4 areli placed Progress/Results/Core Measures Results/Orders My Orders Orders - ALDO WOODWARD MD Ct Head Wo (07/28/21 17:57) Ibuprofen Tablet (Motrin Tablet) (07/28/21 19:14) Lidocaine/Epi 2% 1:100,000 (Xylocaine/Ep (07/28/21 19:30) Medications Given in ED Current Medications Medications Dose Ordered Sig/Yousuf Route Start Time Stop Time Status Last Admin Dose Admin Lidocaine/ Epinephrine 20 ml ONCE ONCE INJ 07/28/21 19:30 07/28/21 19:31 DC 07/28/21 19:23 20 ML Vital Signs/I&O 07/28/21 17:48 Temp 35.8 Pulse 95 Resp 18 B/P (MAP) 166/137 (147) Pulse Ox 98 O2 Delivery Room Air Progress Progress Note : Progress Note 1. FALL/ LEFT PARIETAL SCALP HEMATOMA & Laceration: - CT HEAD: normal except for left parietal scalp hematoma - Pt had a tetanus shot one month ago. - Laceration: after ice applied, kept rechecking Q20min for swelling to go down to staple, since the swelling was very large. Wound was bleeding profusely as swelling came down. Lido with epi injected locally with improvement. 4 areli placed. Pt tolerated procedure well. - Ice, NSAID prn as needed - Concussion precautions given - Wound care precautions given, return for staple removal in 7 days - F/u with PCP in the next 3 days -The patient was seen in the ED, and treated appropriately to presentation at a specific point in time. Patient is informed that there is a possibility that disease and illness can evolve and change in acuity rapidly or slowly after patient is discharged from the ER. Precautionary advice given to the patient for immediate return to ER if symptoms worsen or do not resolve, and to seek emergency care sooner rather than later. Pt also advised on the importance of PCP follow up and compliance with management and follow up plan with PCP and/or specialist, as this is part of the management plan. Pt verbally expressed understanding. Diagnostic Imaging Diagonstic Imaging: CT Plain Films/CT/US/NM/MRI: head Comments [facility] [place], [place] NAME: OSCAR CHIN [facility] REC#: [id number] PT STATUS: REG ER : 1945 PHYSICIAN: ALDO WOODWARD MD ADMIT DATE: 07/28/21/ER FS Signed Date of Exam:07/28/21 CT HEAD WO PROCEDURE: CT head without contrast. TECHNIQUE: Multiple contiguous axial images were obtained through the brain without the use of intravenous contrast. Auto Exposure Controls were utilized during the CT exam to meet ALARA standards for radiation dose reduction. DATE: July 28, 2021. COMPARISON: CT head August 11, 2018. INDICATION: 76-year-old female, fall. Hit back of head. FINDINGS: There is a large heterogeneously high attenuation masslike abnormality in the left parietal scalp compatible with large hematoma measuring approximately 5.9 x 2.4 cm in axial extent. There is no identified a skull fracture. There is an area of abnormal low-attenuation in the right periventricular white matter on axial image 17 unchanged since 2019. There is no abnormal extra-axial fluid collection. There is no evidence of acute intracanal hemorrhage. There is no mass effect or midline shift. The visualized portions of the paranasal sinuses, mastoid air cells, and middle ears are well-aerated. IMPRESSION: 1. Large left parietal scalp hematoma. 2. No identified acute intracranial abnormality. 3. Stable low-attenuation focus in the right periventricular white matter since at least 2018. This potentially could reflect chronic microvascular changes. Dictated by: Dictated on workstation # [id number] Dict: 07/28/21 1816 Trans: 07/28/211828 [facility] [id number] Interpreted by: SOLOMON SAENZ MD Electronically signed by: SOLOMON SAENZ MD 07/28/211828 Departure Impression Primary Impression: Left parietal scalp hematoma Qualified Codes: S00.03XA - Contusion of scalp, initial encounter Additional Impressions: Fall Qualified Codes: W19.XXXA - Unspecified fall, initial encounter Scalp laceration Qualified Codes: S01.01XA - Laceration without foreign body of scalp, initial encounter Disposition: HOME, SELF-CARE Condition: Stable Departure-Patient Inst. Referrals: NO,LOCAL PHYSICIAN (PCP/Family) Primary Care Physician Patient Instructions: Concussion, Adult (DC), Laceration Repair With Areli (DC), Contusion (DC) Add. Discharge Instructions: - Laceration: after ice applied, kept rechecking Q20min for swelling to go down to staple, since the swelling was very large. Wound was bleeding profusely as swelling came down. Lido with epi injected locally with improvement. 4 areli placed. Pt tolerated procedure well. - Ice, NSAID prn as needed - Concussion precautions given - Wound care precautions given, return for staple removal in 7 days - F/u with PCP in the next 3 days -The patient was seen in the ED, and treated appropriately to presentation at a specific point in time. Patient is informed that there is a possibility that disease and illness can evolve and change in acuity rapidly or slowly after patient is discharged from the ER. Precautionary advice given to the patient for immediate return to ER if symptoms worsen or do not resolve, and to seek emergency care sooner rather than later. Pt also advised on the importance of PCP follow up and compliance with management and follow up plan with PCP and/or specialist, as this is part of the management plan. Pt verbally expressed understanding. ALDO WOODWARD MD Jul 28, 2021 17:58
--- NOTE | 2021-07-28 18:21 | Diagnostic Imaging Report ---
PROCEDURE: CT head without contrast. TECHNIQUE: Multiple contiguous axial images were obtained through the brain without the use of intravenous contrast. Auto Exposure Controls were utilized during the CT exam to meet ALARA standards for radiation dose reduction. DATE: July 28, 2021. COMPARISON: CT head August 11, 2018. INDICATION: 76-year-old female, fall. Hit back of head. FINDINGS: There is a large heterogeneously high attenuation masslike abnormality in the left parietal scalp compatible with large hematoma measuring approximately 5.9 x 2.4 cm in axial extent. There is no identified a skull fracture. There is an area of abnormal low-attenuation in the right periventricular white matter on axial image 17 unchanged since 2019. There is no abnormal extra-axial fluid collection. There is no evidence of acute intracanal hemorrhage. There is no mass effect or midline shift. The visualized portions of the paranasal sinuses, mastoid air cells, and middle ears are well-aerated. IMPRESSION: 1. Large left parietal scalp hematoma. 2. No identified acute intracranial abnormality. 3. Stable low-attenuation focus in the right periventricular white matter since at least 2018. This potentially could reflect chronic microvascular changes. Dictated by: Dictated on workstation # [id number]
[2021-07-28] MEDS ORDERED: IBUPROFEN 600 MG (MOTRIN) TAB PO STA (19:14)
[2021-07-28] MEDS ORDERED: LIDOCAINE/EPI 2% 1:100,00 (XYLOCAINE) 20 ML VIAL INJ ONE (19:30)
[2021-07-28 21:34] VITALS: BP 163/76
== END 2021-07-28 21:40 | disposition home or self-care (01) ==
LOC: EDUNIT# 17:45 → ER FS 17:48
DX: S01.01XA Laceration without foreign body of scalp, initial encounter (principal); W54.8XXA Other contact with dog, initial encounter; Y92.480 Sidewalk as the place of occurrence of the external cause
CPT/HCPCS: 12001; 70450